=== PATIENT | female | born 1965 | race Caucasian/White ===

== ENCOUNTER → 2018-03-17 | Outpatient (CLI) | payer OTHER | LOC: COL.RAD 07:11 | DX: N26.1 Atrophy of kidney (terminal) (principal); N39.0 Urinary tract infection, site not specified; Z87.442 Personal history of urinary calculi | CPT/HCPCS: Q9967 ==

== ENCOUNTER 2020-06-26 13:23 | Emergency (ER) | payer BC ==
[~2020-06-26] VITALS: Ht 162.6 cm; Wt 65.9 kg
[2020-06-26 13:37] VITALS: BP 144/90; TEMP 98.3
[2020-06-26 15:00] VITALS: PULSE 88
== END 2020-06-26 15:00 | disposition home or self-care (01) ==
LOC: COL.ER 13:23
DX: K92.2 Gastrointestinal hemorrhage, unspecified (principal); Z88.2 Allergy status to sulfonamides

== ENCOUNTER 2021-07-03 16:54 | Emergency (ER) | payer BC ==
[~2021-07-03] VITALS: Ht 162.6 cm; Wt 68.2 kg
[2021-07-03 17:05] VITALS: TEMP 98.5
[2021-07-03 18:09] LABS: BASO % 0.4 % (0.0-2.0); EOS # 0.1 (0.0-0.7); EOS % 1.4 % (0-4.0); GRAN # 5.2 (1.4-6.5); HEMOGLOBIN 13.9 g/dl (12.5-16.0); LYMPH # 1.6 (1.2-3.4); LYMPH % 21.3 % (20.0-51.0); MEAN CELL VOLUME 89 fl (80.0-100.0); MEAN CORPUSCULAR HEMOGLOBIN 30 pg (27.0-31.0); MEAN CORPUSCULAR HGB CONC 33 g/dl (33.0-37.0); MEAN PLATELET VOLUME 9.7 fl (7.4-10.4); MONO # 0.4 (0.1-0.6); MONO % 5.6 % (1.7-9.3); PLATELET COUNT 275 K/mm3 (130-400); REDCELL DISTRIBUTION WIDTH-CV 12.6 % (11.5-14.5)
[2021-07-03 18:29] LABS: ALBUMIN 4.1 gm/dL (3.5-5.0); BILIRUBIN,TOTAL 0.5 mg/dL (0.2-1.2); CALCIUM 10.2 mg/dL (8.4-10.2); CREATININE, serum 0.97 mg/dL (0.57-1.11); POTASSIUM 3.7 mmol/L (3.5-4.5)
[2021-07-03 18:35] LABS: TROPONIN-I 0.018 ng/mL (0.00-0.033)
[2021-07-03] MEDS ORDERED: PROTONIX 40MG T40 MG PO (18:56)
[2021-07-03 19:22] VITALS: BP 143/94; PULSE 84
== END 2021-07-03 19:22 | disposition home or self-care (01) ==
LOC: COL.ER 16:54
PROVIDERS: Physician Assistant
DX: R07.89 Other chest pain (principal); I10 Essential (primary) hypertension